=== PATIENT | male | born 1940 | race Caucasian/White ===

== ENCOUNTER 2016-10-22 19:59 | Emergency (ER) | payer OTHER ==
[~2016-10-22] VITALS: Ht 175.3 cm; Wt 113.2 kg
[~2016-10-22 19:59] MED LIST: AMLODIPINE BESYL5 MG PO; ATORVASTATIN CA40 MG PO; BENAZEPRIL HCL40 MG PO; FLEXERIL10 MG PO; HYDROCHLOROTH12.5 M3 PO; IRBESARTAN300 MG PO; METFORMIN HCL500 M1 PO; PERCOCET 5/31 TABLET PO; VENLAFAXINE HC150 MG PO
[2016-10-22 21:05] LABS: BASOPHIL COUNT 0.1 K/uL (0-0.1); EOSINOPHIL (%) 1.1 % (0-5); EOSINOPHIL COUNT 0.2 K/uL (0-0.3); HEMATOCRIT 47.3 % (38.0-50.0); IMMATURE GRANULOCYTE (%) 0.7 % (0.0-0.7); IMMATURE GRANULOCYTE COUNT 0.1 K/uL; INSTRUMENT ABS NEUTROPHIL CT 9.9 K/uL; LYMPHOCYTE COUNT 2.4 K/uL (1.0-2.8); MCH 27.8 PG (29.0-34.0); MCHC 32.6 G/DL (30.0-36.0); MCV 85.4 FL (86-99); MEAN PLAT.VOLUME 11.3 uM^3 (9.0-12.4); MONOCYTE (%) 7.6 % (3-12); NEUTROPHIL (%) 72.6 % (45-76); NEUTROPHIL COUNT 9.9 K/uL (1.8-6.4); PLATELET COUNT 176 K/uL (156-360); RBC DIS.WIDTH-CV 15.3 % (11.8-14.6); RBC DIS.WIDTH-SD 47.6 % (39-53); RED BLOOD COUNT 5.54 M/uL (4.00-5.50); WHITE BLOOD COUNT 13.7 K/uL (4.1-10.2)
[2016-10-22 21:14] LABS: CHLORIDE 109 mEq/L (99-109); POTASSIUM 4.3 mEq/L (3.7-5.4); SODIUM 138 mEq/L (136-147)
[2016-10-22 21:15] LABS: GLUCOSE 117 mg/dL (70-99)
[2016-10-22 21:16] LABS: PROTHROMBIN TIME 10.6 (9.2-11.2); PTT 26.7 (25-32)
[2016-10-22 21:17] LABS: ANION GAP 11 MEQ/L (2-14)
[2016-10-22 21:19] LABS: GFR ESTIMATE (CALCULATED) > 59 mL/min/
[2016-10-22 21:20] LABS: UREA NITROGEN (BUN) 30 mg/dL (9-23)
[2016-10-23 00:30] VITALS: BP 111/68
== END 2016-10-23 00:49 | disposition short-term general hospital (02) ==
LOC: EME → EDBD 19:59 → EME 10-23 00:49
PROVIDERS: Emergency Medicine
DX: S42.354A Nondisplaced comminuted fracture of shaft of humerus, right arm, initial encounter for closed fracture (principal); M97.31XA Periprosthetic fracture around internal prosthetic right shoulder joint, initial encounter; S81.012A Laceration without foreign body, left knee, initial encounter; S01.01XA Laceration without foreign body of scalp, initial encounter; W10.9XXA Fall (on) (from) unspecified stairs and steps, initial encounter; E78.5 Hyperlipidemia, unspecified; E11.9 Type 2 diabetes mellitus without complications; Z87.891 Personal history of nicotine dependence; Z96.611 Presence of right artificial shoulder joint; Z79.84 Long term (current) use of oral hypoglycemic drugs
CPT/HCPCS: 70450; 73030; 73060; 73564; 80048; 85025; 85610; 85730; 99281; 99285; J0690; J3010